=== PATIENT | female | born 1950 | race Caucasian/White ===

== ENCOUNTER → 2018-05-01 | Outpatient (CLI) | payer MEDICARE, BC ==
[~2018-05-01] MED LIST: CALCIUM600 M1; IOPAMIDOL 370 MG/ML 200 ML INFUS..BTL INJ ONE; SODIUM CHLORIDE 0.9% 250ML 250 ML ONE; SODIUM CHLORIDE 0.9% 50ML 50 ML ONE; Z ENJUVIA PO; Z.0.SPIRONOLACTONE50 PO; [UNRECOGNIZED DRUG - REMARK] PO
[2018-05-01 10:54] LABS: BLOOD UREA NITROGEN 17 mg/dL (7-26); BUN/CREATININE RATIO 18 (6-25); CREATININE, SERUM 0.92 mg/dL (0.57-1.11); EST GLOMERULAR FILTRATION RATE > 60 ML/MIN (60-)
--- NOTE | 2018-05-01 12:55 | Diagnostic Imaging Report ---
ADDENDUM #1 The following addendum is being made to comply with coding criteria, and does not substantially change the findings or recommendations of the original report All CT scans are performed using radiation dose reduction techniques. Technical factors are evaluated and adjusted to ensure appropriate moderation of exposure. Automated dose management technology is applied to adjust the radiation dose to minimize exposure while achieving a diagnostic-quality image. Signed by: Dr. William Stiles M.D. on 05/08/2018 12:03 PM ORIGINAL REPORT EXAM: CT Abdomen and Pelvis WITHOUT and WITH contrast INDICATION: Gross hematuria. Bacterial infection. History of breast cancer. COMPARISON: None. TECHNIQUE: Abdomen and pelvis were scanned utilizing a multidetector helical scanner from the lung base to the pubic symphysis before and after administration of IV contrast. Coronal and sagittal reformations were obtained. Hematuria protocol was performed. 3-D reformatted images were obtained of the kidneys, ureters and urinary bladder IV CONTRAST: 150 mL of Isovue-370 ORAL CONTRAST: Water RADIATION DOSE: Total DLP: 622.55 mGy*cm Estimated effective dose: (DLP x 0.015 x size factor) mSv COMPLICATIONS: None FINDINGS: LINES and TUBES: None. LOWER THORAX: Unremarkable HEPATOBILIARY: No focal hepatic lesions. No biliary ductal dilation. GALLBLADDER: No radio-opaque stones or sludge. No wall thickening. SPLEEN: No splenomegaly. PANCREAS: No focal masses or ductal dilatation. ADRENALS: No adrenal nodules KIDNEYS/URETERS: Kidneys enhance symmetrically. No hydronephrosis. No cystic or solid mass lesions. 8 mm stone in the upper pole of the left kidney. GI TRACT: No abnormal distention, wall thickening, or evidence of bowel obstruction. PELVIC ORGANS/BLADDER: Unremarkable. LYMPH NODES: No lymphadenopathy. VESSELS: Unremarkable. PERITONEUM / RETROPERITONEUM: No free air or fluid. BONES: Unremarkable. SOFT TISSUES: Unremarkable. Scattered phleboliths are seen in the pelvis. IMPRESSION: 1. 8 mm nonobstructing stone in the upper pole of the left kidney and the kidneys, ureter and urinary bladder are otherwise unremarkable. Signed by: Dr. William Stiles M.D. on 05/01/2018 12:51 PM
== END ==
LOC: CT 09:52
PROVIDERS: ATTEND Urology
DX: R31.0 Gross hematuria (principal)
CPT/HCPCS: 36415; 74178; 82565; 84520; J7050; Q9967

== ENCOUNTER → 2018-06-29 | Day surgery (SDC) | payer MEDICARE, BC ==
[2018-06-25 12:36] LABS: BASOPHILS % 0.4 % (0.0-1.0); EOSINOPHILS # (AUTO) 0.1 (0.0-0.4); EOSINOPHILS % 1.6 % (0.0-6.0); HEMATOCRIT 33.2 % (34.2-44.1); HEMOGLOBIN 11.1 g/dL (12.0-16.0); LYMPHOCYTES # (AUTO) 1.7 (1.0-3.2); LYMPHOCYTES % 34.2 % (18.0-39.1); MEAN CORPUSCULAR HEMOGLOBIN 31.8 pg (28-32); MEAN CORPUSCULAR HGB CONC 33.4 g/dL (31-35); MEAN CORPUSCULAR VOLUME 95.1 fL (81-99); MONOCYTES # (AUTO) 0.6 (0.2-0.8); MONOCYTES % 11.7 % (4.4-11.3); NEUTROPHILS # (AUTO) 2.5 (2.1-6.9); NEUTROPHILS % 51.7 % (38.7-80.0); PLATELET COUNT 186 x10e3/uL (140-360); RED BLOOD COUNT 3.49 x10e6/uL (3.6-5.1); RED CELL DISTRIBUTION WIDTH 12.4 % (11.7-14.4)
[2018-06-25 13:04] LABS: BLOOD UREA NITROGEN 19 mg/dL (7-26); BUN/CREATININE RATIO 22 (6-25); CALCIUM 10.3 mg/dL (8.4-10.2); CARBON DIOXIDE 27 mmol/L (22-29); CHLORIDE 100 mmol/L (98-107); CREATININE, SERUM 0.86 mg/dL (0.57-1.11); EST GLOMERULAR FILTRATION RATE > 60 ML/MIN (60-); GLUCOSE 96 mg/dL (74-118); SODIUM 135 mmol/L (136-145)
--- NOTE | 2018-06-25 13:26 | Diagnostic Imaging Report ---
EXAM: XR CHEST 2 VIEWS DATE: 06/25/2018 12:17 PM INDICATION: Preoperative. Kidney stone. COMPARISON: None FINDINGS: Lines and Tubes: None Heart and Mediastinum: No acute cardiomediastinal findings. Lungs and Pleura: No significant pleural effusion, pneumothorax, or focal consolidation. Bones and Soft Tissues: No acute findings. Surgical clips overlie right breast. IMPRESSION: 1. No acute cardiopulmonary findings. Signed by: Dr. Philippe vEans MD on 06/25/2018 1:23 PM
--- NOTE | 2018-06-26 08:53 | Diagnostic Imaging Report ---
EXAM: ABDOMEN-1VIEW (KUB) DATE: 06/25/2018 12:20 PM INDICATION: Kidney stone COMPARISON: 05/01/2018 CT, no report available FINDINGS: Bowel Gas Pattern: Non-obstructive. Moderate stool largely obscures kidneys, particularly on the left. Pneumoperitoneum: None. Suspicious Calcifications: CT demonstrated calcification left kidney not distinctly seen. Catheter occasions in the pelvis appear vascular. Other: None. IMPRESSION: CT demonstrated calcification left kidney either no longer present or obscured by stool. Signed by: Dr. Philippe Evans MD on 06/25/2018 1:24 PM
[~2018-06-29] MED LIST changes: +ANASTROZOLE1 MG PO; +BELLADONNA/OPIUM 60 MG SUPP PR ONE; -CALCIUM600 M1; +CALCIUM600 M1 PO; +CEFTRIAXONE SOD 1 GM VIAL ONE; +DEXAMETHASONE SOD PHOS INJ 4 MG/ML VIAL ONE; +FENTANYL CITRATE/PF 100MCG/2 ML INJ ONE; +FIBER TABS625 MG PO; +FISH OIL 1,0001 EAC2 PO; -IOPAMIDOL 370 MG/ML 200 ML INFUS..BTL INJ ONE; +IOPAMIDOL 610MG/1ML 300 MG/ML VIAL IV ONE; +LIDOCAINE HCL 2% LOCAL INJ 5 ML SDV VIAL INJ ONE; +MIDAZOLAM HCL 2 MG/2 ML VIAL ONE; +ONDANSETRON HCL INJ 2 MG/ML VIAL ONE; +PROPOFOL IV EMULSION 10 MG/ML 20 ML VIAL ONE; +SEVOFLURANE INHAL SOLN 250 ML PEN BTL ONE; -SODIUM CHLORIDE 0.9% 250ML 250 ML ONE; -SODIUM CHLORIDE 0.9% 50ML 50 ML ONE; +VITAMIN D35000 UNIT PO; +VITAMIN E400 UNIT PO
--- OUTSIDE RECORDS SUMMARY | 2018-06-29 09:20 | XMS REPORT ---
Author [facility] Address Unknown Phone Unavailable Care Team Providers Care Director Athletic Name Role Phone YANNI PAZ Unavailable Unavailable Payers Payer Name Policy Type Policy Number Effective Date Expiration Date Problems This patient has no known problems. Allergies, Adverse Reactions, Alerts Allergy Name Allergy Type Status Severity Reaction(s) Onset Date Inactive Date Treating Clinician Comments No Known Allergies DA Active U 2017-10-23 00:00:00 Medications This patient has no known medications. Results Test Description Test Time Test Comments Text Results Atomic Results Result Comments ABDOMEN-1VIEW (KUB) 2018-06-25 13:23:00 [place] [address] Patient Name: JAISON GRAHAM MR #: [id number] : 1950 Age/Sex: 67/F Req #: [id number] Adm Physician: Ordered by: YANNI PAZ MD Report #: [id number] Location: OR Room/Bed: Procedure: [id number] DX/ABDOMEN-1VIEW (KUB) Exam Date: 06/25/18 Exam Time: 1330 REPORT STATUS: Signed EXAM: ABDOMEN-1VIEW (KUB) DATE: 06/25/2018 12:20 PM INDICATION: Kidney stone COMPARISON: 05/01/2018 CT, no report available FINDINGS: Bowel Gas Pattern: Non-obstructive. Moderate stool largely obscures kidneys, particularly on the left. Pneumoperitoneum: None. Suspicious Calcifications: CT demonstrated calcification left kidney not distinctly seen. Catheter occasions in the pelvis appear vascular. Other: None. IMPRESSION: CT demonstrated calcification left kidney either no longer present or obscured by stool. Signed by: Dr. Philippe Evans MD on 06/25/2018 1:24 PM Dictated By: PHILIPPE EVANS MD E lectronically Signed By: PHILIPPE EVANS MD on 06/25/18 1324 Transcribed By: BRYCE on 06/25/18 1324 COPY TO: YANNI PAZ MD CHEST 2 VIEWS 2018-06-25 13:22:00 [place] [address] Patient Name: JIASON GRAHAM MR #: [id number] : 1950 Age/Sex: 67/F Req #: [id number] Adm Physician: Ordered by: YANNI PAZ MD Report #: [id number] Location: OR Room/Bed: Procedure: [id number] DX/CHEST 2 VIEWS Exam Date: 06/25/18 Exam Time: 1308 REPORT STATUS: Signed EXAM: XR CHEST 2 VIEWS DATE: 06/25/2018 12:17 PM INDICATION: Preoperative. Kidney stone. COMPARISON: None FINDINGS: Lines and Tubes: None Heart and Mediastinum: No acute cardiomediastinal findings. Lungs and Pleura: No significant pleural effusion, pneumothorax, or focal consolidation. Bones and Soft Tissues: No acute findings. Surgical clips overlie right breast. IMPRESSION: 1. No acute cardiopulmonary findings. Signed by: Dr. Philippe Evans MD on 06/25/2018 1:23 PM Dictated By: PHILIPPE EVANS MD 1323 Transcribed By: BRYCE on 06/25/18 1323 COPY TO: YANNI PAZ MD CT ABDOMEN/PELVIS WOW 2018-05-01 12:43:00 [place] [address] Patient Name: JAISON GRAHAM MR #: [id number] : 1950 Age/Sex: 67/F Req #: [id number] Adm Physician: Ordered by: YANNI PAZ MD Report #: [id number] Location: CT Room/Bed: Procedure: [id number] CT/CT ABDOMEN/PELVIS WOW Exam Date: 05/01/18 Exam Time: 1130 REPORT STATUS: Signed ADDENDUM #1 The following addendum is being made to comply with coding criteria, and does not substantially change the findings or recommendations of the original report All CT scans are performed using radiation dose reduction techniques. Technical factors are evaluated and adjusted to ensure appropriate moderation of exposure. Automated dose management technology is applied to adjust the radiation dose to minimize exposure while achieving a diagnostic-quality image. Signed by: Dr. William Stiles M.D. on 05/08/2018 12:03 PM ORIGINAL REPORT EXAM: CT Abdomen and Pelvis WITHOUT and WITH contrast INDICATION: Gross hematuria. Bacterial infection. History of breast cancer. COMPARISON: None. TECHNIQUE: Abdomen and pelvis were scanned utilizing a multidetector helical scanner from the lung base to the pubic symphysis before and after administration of IV contrast. Coronal and sagittal reformations were obtained. Hematuria protocol was performed. 3-D reformatted images were obtained of the kidneys, ureters and urinary bladder IV CONTRAST: 150 mL of Isovue-370 ORAL CONTRAST: Water RADIATION DOSE: Total DLP: 622.55 mGy*cm Estimated effective dose: (DLP x 0.015 x size factor) mSv COMPLICATIONS: None FINDINGS: LINES and TUBES: None. LOWER THORAX: Unremarkable HEPATOBILIARY: No focal hepatic lesions. No biliary ductal dilation. GALLBLADDER: No radio-opaque stones or sludge. No wall thickening. SPLEEN: No splenomegaly. PANCREAS: No focal masses or ductal dilatation. ADRENALS: No adrenal nodules KIDNEYS/URETERS: Kidneys enhance symmetrically. No hydronephrosis. No cystic or solid mass lesions. 8 mm stone in the upper pole of the left kidney. GI TRACT: No abnormal distention, wall thickening, or evidence of bowel obstruction. PELVIC ORGANS/BLADDER: Unremarkable. LYMPH NODES: No lymphadenopathy. VESSELS: Unremarkable. PERITONEUM / RETROPERITONEUM: No free air or fluid. BONES: Unremarkable. SOFT TISSUES: Unremarkable. Scattered phleboliths are seen in the pelvis. IMPRESSION: 1. 8 mm nonobstructing stone in the upper pole of the left kidney and the kidneys, ureter and urinary bladder are otherwise unremarkable. Signed by: Dr. William Stiles M.D. on 05/01/2018 12:51 PM Dictated By: WILLIAM STILES MD, MD 1203 Transcribed By: BRYCE on 05/01/18 1251 COPY TO: YANNI PAZ MD
--- NOTE | 2018-06-29 10:39 | Diagnostic Imaging Report ---
PROCEDURE:X-RAY ABDOMEN - KUB COMPARISON:06/25/2018. INDICATIONS:PREOPERATIVE CHEST XRAY FOR KIDNEY STONE SURGERY FINDINGS: Bowel gas pattern shows no dilated, air-filled loops of bowel. Cluster of left upper pole renal calculi measuring 8 mm in aggregate dimension, as seen on comparison CT. No additional calcifications project over the renal shadows or expected ureteral courses. Multiple pelvic phleboliths. Regional skeletal structures are intact. CONCLUSION: left upper pole renal calculi as seen on prior CT. Dictated by: Cesar Alvarado M.D. on 06/29/2018 at 10:50 Electronically approved by: Cesar Alvarado M.D. on 06/29/2018 at 10:50
[2018-06-29 15:15] VITALS: BP 145/86
--- NOTE | 2018-07-01 23:57 | Operative Report ---
DATE OF PROCEDURE: June 29, 2018 PREOPERATIVE DIAGNOSES 1. Left nephrolithiasis. 2. History of hematuria. 3. History of urinary tract infections. 4. Mixed-type urinary incontinence. POSTOPERATIVE DIAGNOSES 1. Left nephrolithiasis. 2. History of hematuria. 3. History of urinary tract infections. 4. Mixed-type urinary incontinence. 5. Mild cystocele. 6. Mild rectocele. 7. Atrophic (senile) vaginitis. OPERATIONS PERFORMED 1. Staged left-sided extracorporeal shockwave lithotripsy (separate procedure performed for the nephrolithiasis). 2. Cystourethroscopy with bilateral ureteral catheterization and retrograde ureteropyelography (separate procedure performed for the hematuria and urinary tract infections). 3. Interpretation of retrograde ureteropyelography. 4. Supervision of fluoroscopy. No radiologist present. ANESTHESIA: General. COMPLICATIONS: None. CLINICAL SUMMARY: Jessee Vallecillo is a 67-year-old woman with the above preoperative diagnoses. She was brought for the above procedures. She is aware of the risks of bleeding, infection, injury to adjacent structures, need for additional procedures, and elected to proceed. OPERATIVE PROCEDURE IN DETAIL: Informed consent was verified. Jessee Vallecillo was properly identified, taken to operating room, placed on the lithotripsy table in supine position. Anesthesia was uneventfully begun. The patient's left nephrolithiasis was localized with biplanar fluoroscopy. Total of 3000 shocks were delivered with excellent fragmentation. The patient was carefully and gently re-positioned in dorsal lithotomy position with all pressure points well padded. Her genitalia were prepared and draped in usual sterile fashion. The 22.5-Bhutanese cystoscope sheath with the obturator in place was atraumatically inserted in patient's urethra and the bladder was drained. Panendoscopy of the urinary bladder revealed no suspicious mucosal lesions, no tumors, no stones. An 8-Bhutanese catheter was used to cannulate each ureter and retrograde ureteropyelograms performed. Interpretation of retrograde ureteropyelography: Contrast was instilled in retrograde fashion bilaterally. On the left side. There were filling defects in the upper pole arie corresponding to the fragmented stones and blood clots. The right side was unremarkable. There were no tumors, there were no stones, there were no diverticula. Unobstructed drainage was observed bilaterally fluoroscopically. Patient's bladder was drained. The cystoscope was withdrawn. Pelvic examination under anesthesia revealed a mild cystocele, mild rectocele. There was atrophic (senile) vaginitis. No abnormal palpable pelvic masses could be appreciated. The patient was then uneventfully reversed from anesthesia and taken to recovery room in stable condition. There were no complications to the procedure. She tolerated the procedure well. Explicit postop instructions were given. Will follow the patient up in the office. Job#: [id number] CQ cc:KEATON BUCKLEY MD
== END | disposition home or self-care (01) ==
LOC: OR 09:18
PROVIDERS: ATTEND Urology
DX: N20.0 Calculus of kidney (principal); Z87.440 Personal history of urinary (tract) infections; N39.46 Mixed incontinence; N81.10 Cystocele, unspecified; N81.6 Rectocele; N95.2 Postmenopausal atrophic vaginitis; I45.10 Unspecified right bundle-branch block; Z01.810 Encounter for preprocedural cardiovascular examination; Z01.812 Encounter for preprocedural laboratory examination; Z01.818 Encounter for other preprocedural examination; Z79.82 Long term (current) use of aspirin
CPT/HCPCS: 36415 ×2; 50590; 71046; 74018 ×2; 80048; 82948; 83970; 84550; 85025; 93005; C1758; J0696; J1100; J2001; J2250; J2405; J2704; Q9967

== ENCOUNTER → 2018-11-01 | Outpatient (CLI) | payer MEDICARE, BC ==
[~2018-11-01] MED LIST changes: -BELLADONNA/OPIUM 60 MG SUPP PR ONE; -CEFTRIAXONE SOD 1 GM VIAL ONE; -DEXAMETHASONE SOD PHOS INJ 4 MG/ML VIAL ONE; -FENTANYL CITRATE/PF 100MCG/2 ML INJ ONE; -IOPAMIDOL 610MG/1ML 300 MG/ML VIAL IV ONE; -LIDOCAINE HCL 2% LOCAL INJ 5 ML SDV VIAL INJ ONE; -MIDAZOLAM HCL 2 MG/2 ML VIAL ONE; -ONDANSETRON HCL INJ 2 MG/ML VIAL ONE; -PROPOFOL IV EMULSION 10 MG/ML 20 ML VIAL ONE; -SEVOFLURANE INHAL SOLN 250 ML PEN BTL ONE
--- NOTE | 2018-11-01 09:47 | Diagnostic Imaging Report ---
Abdomen, one view. History: Renal stone. Comparison: CT scan of the kidneys dated 05/01/2018 Findings: Small upper pole left renal stone present that appears changed in size compared to the prior study and now measuring 3.9 mm. Multiple pelvic calcifications appear compatible with phleboliths The intestinal gas pattern is nonobstructive. There no masses. The osseous structures are intact. IMPRESSION: Small left upper pole renal stone. Signed by: Dr. Gregory Mccullough DO on 11/01/2018 9:44 AM
== END ==
LOC: RAD 08:54
PROVIDERS: ATTEND Urology
DX: N20.0 Calculus of kidney (principal)
CPT/HCPCS: 74018

== ENCOUNTER → 2019-01-24 | Outpatient (CLI) | payer MEDICARE, BC ==
--- NOTE | 2019-01-24 13:56 | Diagnostic Imaging Report ---
Abdomen, 2 views. History: Renal stones. Comparison: 11/01/2018 Findings: Previously identified left renal stone not readily apparent on this study. There is fecal material within the colon that obscures renal detail. The intestinal gas pattern is nonobstructive. There is no free air. There no masses. Multiple pelvic phleboliths again noted. The osseous structures are intact. IMPRESSION: No acute abdominal abnormality. Signed by: Dr. Gregory Mccullough DO on 01/24/2019 1:53 PM
== END ==
LOC: RAD 11:38
PROVIDERS: ATTEND Urology
DX: N20.0 Calculus of kidney (principal)
CPT/HCPCS: 74018

== ENCOUNTER → 2019-04-26 | Day surgery (SDC) | payer MEDICARE, BC ==
[2019-04-22 09:05] LABS: BASOPHILS % 0.5 % (0.0-1.0); EOSINOPHILS # (AUTO) 0.1 (0.0-0.4); EOSINOPHILS % 2.2 % (0.0-6.0); HEMATOCRIT 32.8 % (34.2-44.1); LYMPHOCYTES # (AUTO) 0.9 (1.0-3.2); LYMPHOCYTES % 23.9 % (18.0-39.1); MEAN CORPUSCULAR HEMOGLOBIN 31.3 pg (28-32); MEAN CORPUSCULAR HGB CONC 33.5 g/dL (31-35); MEAN CORPUSCULAR VOLUME 93.4 fL (81-99); MONOCYTES # (AUTO) 0.5 (0.2-0.8); NEUTROPHILS # (AUTO) 2.2 (2.1-6.9); NEUTROPHILS % 59.1 % (38.7-80.0); PLATELET COUNT 220 x10e3/uL (140-360); RED BLOOD COUNT 3.51 x10e6/uL (3.6-5.1); RED CELL DISTRIBUTION WIDTH 12.2 % (11.7-14.4)
[2019-04-22 09:27] LABS: BLOOD UREA NITROGEN 19 mg/dL (7-26); BUN/CREATININE RATIO 22 (6-25); CALCIUM 10.1 mg/dL (8.4-10.2); CARBON DIOXIDE 27 mmol/L (22-29); CHLORIDE 102 mmol/L (98-107); CREATININE, SERUM 0.87 mg/dL (0.57-1.11); EST GLOMERULAR FILTRATION RATE > 60 ML/MIN (60-); GLUCOSE 96 mg/dL (74-118); SODIUM 136 mmol/L (136-145)
--- NOTE | 2019-04-22 09:53 | Diagnostic Imaging Report ---
EXAMINATION: CHEST 2 VIEWS INDICATION: Pre-operative COMPARISON: Chest radiograph of 06/25/2018 FINDINGS: LINES/TUBES:None LUNGS:The lungs are well-inflated. No focal consolidation or pulmonary edema. PLEURA:No pleural effusion or pneumothorax. MEDIASTINUM:The cardiomediastinal silhouette appears normal in size and shape. Atherosclerotic calcifications of the thoracic aorta. BONES/SOFT TISSUES:No acute osseous injury. Surgical clips in the right breast. ABDOMEN:No free air under the diaphragm. IMPRESSION: No focal pneumonia or pulmonary edema. Signed by: Marcia Marinelli MD on 04/22/2019 9:50 AM
--- NOTE | 2019-04-22 10:07 | Diagnostic Imaging Report ---
Exam: KUB - 2 views Indication: Preoperative Comparison: KUB of 01/24/2019 Findings: No radiographically apparent renal calculi. Nonobstructive bowel gas pattern. The osseous structures appear unremarkable. Phleboliths in the pelvis. Impression: No radiographically apparent renal calculi. Signed by: Marcia Marinelli MD on 04/22/2019 10:04 AM
[~2019-04-26] MED LIST changes: +CEFTRIAXONE SOD 1 GM/NS 50 ML 50 ML IV ONE; +CITRACAL + D M1 EACH PO; +DEXAMETHASONE SOD PHOS INJ 4 MG/ML VIAL ONE; +HYDROCHLOROTHIA25 MG PO; +LIDOCAINE HCL 2% LOCAL INJ 5 ML SDV VIAL INJ ONE; +ONDANSETRON HCL INJ 2MG/ML 2ML 2 MG/ML VIAL ONE; +PROPOFOL IV EMULSION 10 MG/ML 20 ML VIAL ONE; +SEVOFLURANE INHAL SOLN 250 ML PEN BTL ONE
--- OUTSIDE RECORDS SUMMARY | 2019-04-26 05:20 | XMS REPORT | Clinical Summary ---
Author Author [facility] Organization [facility] Address Unknown Phone Unavailable Care Team Providers Care Polarity Tester Name Role Phone Lina Newsome MD PCP Allergies No Known Allergies Medications End Date Status Medication Sig Dispensed Refills Start Date Active anastrozole (ARIMIDEX) 1 Take 1 mg by 0 mg chemo tablet mouth daily. Active spironolactone Take 50 mg by 0 (ALDACTONE) 50 MG tablet mouth daily. Active omega 1-mww-cdz-fish oil Take by 0 (FISH OIL) 1,000 mg (120 mouth. mg-180 mg) capsule Active vitamin E 400 UNIT Take 400 0 capsule Units by mouth daily. Active calcium citrate-vitamin Take 1 tablet 0 D3 (CITRACAL+D) 315-200 by mouth 2 mg-unit per tablet (two) times a day. Active hydroCHLOROthiazide Take 12.5 mg 0 (HYDRODIURIL) 12.5 MG by mouth tablet daily. 02/01/2019 Discontinued (Duplicate order) calcium carbonate-vitamin Take 1 tablet 0 D3 500 mg-200 unit per by mouth 2 tablet (two) times a day with meals. 02/01/2019 Discontinued (Stop Taking at Discharge) aspirin (ECOTRIN) 325 MG Take 325 mg 0 enteric coated tablet by mouth daily. Active Problems No known active problems Encounters Care Team Description Date Type Specialty Merrick Jacob MD [place], [place], CRNA 02/01/2019 Anesthesia General Surgery Event Hansa Gutierrez MD FAT GRAFTING TO RIGHT BREAST (DONOR) LIPOSUCTION FROM ABDOMEN AND FLANKS 02/01/2019 Surgery General Surgery Hansa Gutierrez MD Preop testing 02/01/2019 Hospital General Surgery Encounter Hansa Gutierrez MD 01/21/2019 Hospital Radiology Encounter Hansa Gutierrez MD Preop testing (Primary Dx) 01/21/2019 Pre-Admit Pre-Admission Testing Testing Appointment after 04/25/2018 Family History Medical History Relation Name Comments Cancer Brother Diabetes Father No Known Problems Mother Cancer Sister Relation Name Status Comments Brother Father Mother Sister Social History Date Tobacco Use Types Packs/Day Years Used Never Smoker Smokeless Tobacco: Never Used Drinks/Week oz/Week Comments Alcohol Use Never Alcohol Habits Answer Date Recorded How often do you have a drink containing alcohol? Never 01/21/2019 How many drinks containing alcohol do you have on Not asked a typical day when you are drinking? How often do you have six or more drinks on one Not asked occasion? Sex Assigned at Date Recorded Not on file Industry Job Start Date Occupation Not on file Not on file Not on file Travel End Travel History Travel Start No recent travel history available. Last Filed Vital Signs Reading Time Taken Comments Vital Sign 148/65 02/01/2019 7:35 PM CDT Blood Pressure 79 02/01/2019 7:35 PM CDT Pulse 37.1 C (98.7 F) 02/01/2019 7:02 PM CDT Temperature 16 02/01/2019 7:35 PM CDT Respiratory Rate 98% 02/01/2019 7:35 PM CDT Oxygen Saturation - - Inhaled Oxygen Concentration 55.1 kg (121 lb 6.4 oz) 02/01/2019 12:29 PM CDT Weight 149.9 cm (4' 11") 02/01/2019 12:29 PM CDT Height 24.52 02/01/2019 12:29 PM CDT Body Mass Index Plan of Treatment Health Maintenance Due Date Last Done Comments BREAST CANCER SCREENING 09/27/2001 COLONOSCOPY SCREENING 09/27/2001 SHINGLES VACCINES (#1) 09/27/2001 65+ PNEUMOCOCCAL VACCINE 09/27/2016 (1 of 2 - PCV13) INFLUENZA VACCINE 02/28/2019 Procedures Comments Procedure Name Priority Date/Time Associated Diagnosis SURGICAL PATHOLOGY Routine 02/01/2019 REQUEST 2:45 PM CDT MD AN ELECTIVE Routine 02/01/2019 ENDOTRACHEAL AIRWAY 1:47 PM CDT Procedure Note - Janay Traylor - 02/01/2019 1:47 PM CDT Airway Performed by: Janay Traylor Authorized by: Merrick Jacob MD Location: OR Urgency: Elective Anesthesio logist: Merrick Jacob MD Resident/C RNA/AA: Janay Traylor Performed by: resident/C RNA/AA Preoxygena sarath with 100% O2: Yes Mask Ventilatio n: Easy mask Final Airway Type: Endotrache al airway Final Endotrache al Airway: ETT Technique Used: Direct laryngosco py Devices/Me thods Used in Placement: Intubatin g stylet Blade Type: Kathryn Laryngosco pe Blade/Vide olaryngosc ope Blade Size: 3 ETT Size (mm): 7.0 Measured from: Teeth ETT to Teeth (cm): 20 Placement Verified by: CO2 detection and direct visualizat ion Laryngosco pic view: Grade IIb - view of arytenoids or posterior of glottis only Rapid Sequence Induction (RSI): No Modified RSI: No Number of Attempts at Approach: 1 MASTOPEXY 02/01/2019 HX OF RIGHT BREAST CANCER 1:22 PM CDT WITH BREAST ASYMMETRY - C50.11 & N65.0 LIPOSUCTION 02/01/2019 HX OF RIGHT BREAST CANCER 1:22 PM CDT WITH BREAST ASYMMETRY - C50.11 & N65.0 XR CHEST 2 VW Routine 01/21/2019 Preop testing 2:45 PM CDT ECG 12-LEAD Routine 01/21/2019 Preop testing 2:22 PM CDT ESTIMATED GFR Routine 01/21/2019 2:16 PM CDT COMPREHENSIVE METABOLIC Routine 01/21/2019 Preop testing PANEL 2:16 PM CDT HC COMPLETE BLD COUNT Routine 01/21/2019 Preop testing W/AUTO DIFF 2:16 PM CDT after 04/25/2018 Results * Surgical pathology request (02/01/2019 2:45 PM CDT) [facility] DEPARTMENT OF PATHOLOGY AND GENOMIC MEDICINE Surgical See link below for PDF Lab [facility] pathology Report DEPARTMENT OF report PATHOLOGY AND GENOMIC MEDICINE Result status This is Final Report for [facility] [id number] DEPARTMENT OF PATHOLOGY AND GENOMIC MEDICINE Specimen Performing Organization Address City/State/Zipcode Phone Number [facility] [place] [address] [place] [address] PATHOLOGY AND GENOMIC MEDICINE * XR Chest 2 Vw (01/21/2019 2:45 PM CDT) Specimen Narrative Performed At EXAMINATION:XR CHEST 2 VW RADIANT CLINICAL HISTORY: Z01.818 Encounter for other preprocedural examination, preop COMPARISON:None IMPRESSION: No active disease in the chest. Lungs are clear. Heart size and pulmonary vasculature are normal. There is aortic calcification.No effusion or pneumothorax noted. Visualized osseous structures are intact. Procedure Note Interface, Radiology Results Incoming - 01/21/2019 3:37 PM CDT EXAMINATION: XR CHEST 2 VW CLINICAL HISTORY: Z01.818 Encounter for other preprocedural examination, preop COMPARISON: None IMPRESSION: No active disease in the chest. Lungs are clear. Heart size and pulmonary vasculature are normal. There is aortic calcification. No effusion or pneumothorax noted. Visualized osseous structures are intact. Performing Organization Address [facility]/Zipcode Phone Number [facility] [address] [place] [address] * ECG 12 lead (01/21/2019 2:22 PM CDT) Pathologist [facility] Ventricular 86 [facility] rate Atrial rate 86 [facility] MD interval 150 [facility] QRSD interval 132 [facility] QT interval 378 [facility] QTC interval 452 [facility] P axis 1 36 [facility] QRS axis 1 -22 [facility] T wave axis 15 [facility] EKG impression Normal sinus rhythm-Right [facility] bundle branch block-Abnormal ECG-No previous ECGs available- Specimen Narrative Performed At Performing Organization Address City/[facility]/Zipcode Phone Number [facility] MUSE [address] [place] [address] * Estimated GFR (01/21/2019 2:16 PM CDT) Pathologist [facility] Estimated GFR 66 mL/min/1.73 m2 [place] Comment: DRUZE CLEAR [facility] rpretation G1 >=90 Normal or high G2 60-89Mildly decreased [id number] Mildly to moderately decreased [id number] Moderately to severely decreased G4 15-29Severely decreased G5 <15Kidney failure The eGFR was calculated using the Chronic Kidney Disease Epidemiology Collaboration (CKD-EPI) equation. Interpretation is based on recommendations of the National Kidney Foundation-Kidney Disease Outcomes Quality Initiative (NKF-KDOQI) published in 2014. Specimen Plasma specimen Performing Organization Address City/[facility] Phone Number [facility] [place] [id number] [place] [address] [place] [id number] PATHOLOGY AND GENOMIC MEDICINE [address] * CBC with platelet and differential (01/21/2019 2:16 PM CDT) WBC 4.70 4.50 - 11.00 k/uL [facility] RBC 3.67 (L) 4.20 - 5.50 m/uL [facility] HGB 11.6 (L) 12.0 - 16.0 g/dL [facility] HCT 34.3 (L) 37.0 - 47.0 % [facility] MCV 93.5 82.0 - 100.0 fL [facility] MCH 31.6 27.0 - 34.0 pg [facility] MCHC 33.8 31.0 - 37.0 g/dL [facility] RDW - SD 42.0 37.0 - 55.0 fL [facility] MPV 9.8 8.8 - 13.2 fL [facility] Platelet count 218 150 - 400 k/uL [facility] Nucleated RBC 0.00 /100 WBC [facility] Neutrophils 61.4 39.0 - 69.0 % [facility] Lymphocytes 24.9 (L) 25.0 - 45.0 % [facility] Monocytes 12.1 (H) 0.0 - 10.0 % [facility] Eosinophils 0.6 0.0 - 5.0 % [facility] Basophils 0.6 0.0 - 1.0 % [facility] Specimen Blood Performing Organization Address City/[facility] Phone Number [facility] DEPARTMENT OF [address] [place] [address] [place] [phone] PATHOLOGY AND GENOMIC MEDICINE [address] * Comprehensive metabolic panel (01/21/2019 2:16 PM CDT) Sodium 134 (L) 135 - 148 mEq/L [facility] Potassium 3.7 3.5 - 5.0 mEq/L [facility] Chloride 94 (L) 98 - 112 mEq/L [facility] CO2 28 24 - 31 mEq/L [facility] Anion gap 12@ANIO 7 - 15 mEq/L [facility] BUN 18 8 - 23 mg/dL [facility] Creatinine 0.90 0.50 - 0.90 mg/dL [facility] Glucose 111 (H) 65 - 99 mg/dL [facility] Calcium 10.0 8.8 - 10.2 mg/dL [facility] Protein 7.8 6.3 - 8.3 g/dL [place] Comment: [facility] 4.6-7.0 g/dL 1 week 4.4-7.6 g/dL 7 months-1year 5.1-7.3 g/dL 1-2 years5.6-7 .5 g/dL >3 years6.0-8 .0 g/dL 18-150 6.3-8.3 g/dL Albumin 4.8 3.5 - 5.0 g/dL [facility] A/G ratio 1.6 0.7 - 3.8 [facility] Alkaline 79 35 - 104 U/L [place] phosphatase [facility] AST 18 10 - 35 U/L [facility] ALT 16 5 - 50 U/L [facility] Total bilirubin 0.2 0.0 - 1.2 mg/dL [facility] Specimen Plasma specimen Performing Organization Address City/State/Zipcode [place] [address] [place] [address] PATHOLOGY AND GENOMIC MEDICINE [facility] [address] after 04/25/2018 Insurance Type Payer Benefit Subscriber ID Effective Phone Address Plan / Dates Group PPO BCBS BCBS xxxxxxxxxxxx [id number] CHOICE resent PPO/F[employer] [employer] EMPL PPO Medicare MEDICARE MEDICARE xxxxxxxxxxx 2016-P [place], PART A AND [place] Advance Directives For more information, please contact: [phone] Patient Commercial Real Estate Assistant Explanation Type Date Recorded Advance Directives, Living Will and Medical Power of Inspector [place]
[2019-04-26 08:30] VITALS: BP 155/75
--- NOTE | 2019-04-26 14:36 | Operative Report ---
DATE OF PROCEDURE: 04/26/2019 SURGEON: Freddy Jarvis MD PREOPERATIVE DIAGNOSIS: Left nephrolithiasis. POSTOPERATIVE DIAGNOSIS: Left nephrolithiasis. OPERATIONS PERFORMED: 1. Staged left-sided extracorporeal shockwave lithotripsy. 2. Supervision of fluoroscopy, no radiologist present. ANESTHESIA: General. COMPLICATIONS: None. CLINICAL SUMMARY: Jessee Vallecillo is a 68-year-old woman with left nephrolithiasis. She underwent ESWL and her stone went from 8 mm to 4 mm. The patient is brought to the operating today for lithotripsy. She is aware of the risks of bleeding, infection, injury to adjacent structures, and need for additional procedures and elected to proceed. OPERATIVE PROCEDURE IN DETAIL: Informed consent was verified. Jessee Vallecillo was properly identified, taken to the operating room, and placed on the lithotripsy table in the supine position. Anesthesia was uneventfully begun. The patient's 4 mm stone was localized with biplanar fluoroscopy. A total of 3000 shocks were delivered with fragmentation noted. The patient was then uneventfully reversed from anesthesia and taken to the recovery room in stable condition. There were no complications to the procedure. She tolerated the procedure well. Explicit postop instructions were given. We will follow the patient up in the office. Freddy Jarvis MD [place]/[facility] /[id number]
== END | disposition home or self-care (01) ==
LOC: OR 05:00
PROVIDERS: ATTEND Urology
DX: N20.0 Calculus of kidney (principal); Z01.810 Encounter for preprocedural cardiovascular examination; Z01.812 Encounter for preprocedural laboratory examination; Z01.818 Encounter for other preprocedural examination; Z79.82 Long term (current) use of aspirin
CPT/HCPCS: 36415; 50590; 71046; 74018; 80048; 83970; 84550; 85025; 93005; J0696; J1100; J2001; J2405; J2704

== ENCOUNTER → 2019-09-12 | Outpatient (CLI) | payer MEDICARE, BC ==
[~2019-09-12] MED LIST changes: -CEFTRIAXONE SOD 1 GM/NS 50 ML 50 ML IV ONE; -DEXAMETHASONE SOD PHOS INJ 4 MG/ML VIAL ONE; -LIDOCAINE HCL 2% LOCAL INJ 5 ML SDV VIAL INJ ONE; -ONDANSETRON HCL INJ 2MG/ML 2ML 2 MG/ML VIAL ONE; -PROPOFOL IV EMULSION 10 MG/ML 20 ML VIAL ONE; -SEVOFLURANE INHAL SOLN 250 ML PEN BTL ONE
--- NOTE | 2019-09-12 13:17 | Diagnostic Imaging Report ---
EXAM: ABDOMEN-1VIEW (KUB) DATE: 09/12/2019 12:48 PM INDICATION: History of renal calculus. COMPARISON: 04/22/2019 FINDINGS: Bowel gas pattern is nonobstructive. No radiographically evident renal calculi are appreciated. Stable appearing phleboliths noted within the pelvis. No other abnormal intra-abdominal calcification is appreciated. No acute osseous abnormality identified. IMPRESSION: No radiographically evident renal calculi identified. Signed by: Dr. Nabil Rehman MD on 09/12/2019 1:14 PM
== END ==
LOC: RAD 12:39
PROVIDERS: ATTEND Urology
DX: N20.0 Calculus of kidney (principal)
CPT/HCPCS: 74018

== ENCOUNTER → 2020-05-14 | Outpatient (CLI) | payer MEDICARE, BC ==
--- NOTE | 2020-05-14 11:46 | Diagnostic Imaging Report ---
Abdomen, one view INDICATION: ^[id number] ^[id number] ^CALCULUS OF KIDNEY Comparison: None available. Discussion: No radiographically apparent renal calculi are identified projecting over the renal shadows or expected course of the ureters. Phleboliths are identified in the pelvis. Large amount of stool is identified throughout the proximal colon with a mild amount of stool throughout the descending colon and sigmoid colon/rectum. No dilated loops of small bowel are identified. No acute osseous abnormality. IMPRESSION: No radiographically apparent renal calculi. Moderate colonic stool retention, correlate for constipation. Signed by: Ronny Sweeney MD on 05/14/2020 11:43 AM
== END ==
LOC: RAD 10:38
PROVIDERS: ATTEND Urology
DX: N20.0 Calculus of kidney (principal)
CPT/HCPCS: 74018

== ENCOUNTER → 2020-10-27 | Outpatient (CLI) | payer MEDICARE, BC | LOC: RAD 10:48 | PROVIDERS: ATTEND Urology | DX: N20.0 Calculus of kidney (principal) | CPT/HCPCS: 74018 ==

== ENCOUNTER → 2021-04-13 | Outpatient (CLI) | payer MEDICARE, BC ==
[~2021-04-13] MED LIST changes: +IOPAMIDOL 370 MG/ML 200 ML INFUS..BTL INJ ONE; +SODIUM CHLORIDE 0.9% 250ML 250 ML ONE
== END ==
LOC: CT 13:22
PROVIDERS: ATTEND Urology
DX: R31.0 Gross hematuria (principal)
CPT/HCPCS: 74178; J7050; Q9967

== ENCOUNTER → 2021-06-04 | Day surgery (SDC) | payer MEDICARE, BC ==
[2021-06-02 08:10] LABS: BASOPHILS % 0.6 % (0.0-1.0); EOSINOPHILS # (AUTO) 0.3 (0.0-0.4); EOSINOPHILS % 5.2 % (0.0-6.0); HEMATOCRIT 32.1 % (34.2-44.1); HEMOGLOBIN 10.4 g/dL (12.0-16.0); LYMPHOCYTES # (AUTO) 1.3 (1.0-3.2); LYMPHOCYTES % 23.9 % (18.0-39.1); MEAN CORPUSCULAR HGB CONC 32.4 g/dL (31-35); MEAN CORPUSCULAR VOLUME 95.8 fL (81-99); MONOCYTES # (AUTO) 0.6 (0.2-0.8); MONOCYTES % 11.1 % (4.4-11.3); NEUTROPHILS # (AUTO) 3.1 (2.1-6.9); NEUTROPHILS % 58.8 % (38.7-80.0); PLATELET COUNT 235 x10e3/uL (140-360); RED BLOOD COUNT 3.35 x10e6/uL (3.6-5.1)
[2021-06-02 08:37] LABS: ALBUMIN 4.1 g/dL (3.5-5.0); ALBUMIN/GLOBULIN RATIO 1.1 (0.8-2.0); ANION GAP 16.1 mmol/L (8-16); CALCIUM 9.4 mg/dL (8.4-10.2); CREATININE, SERUM 1.05 mg/dL (0.57-1.11); POTASSIUM 4.1 mmol/L (3.5-5.1)
[~2021-06-04] MED LIST changes: +AMOX-CLAV PO; +BELLADONNA/OPIUM 30 MG SUPP RC ONE; +EPHEDRINE SULFATE INJ 50 MG/ML VIAL ONE; +FENTANYL CITRATE/PF 100MCG/2 ML INJ ONE; +GENTAMICIN 80MG/NS 100 ML 200 ML IV ONE; +IOPAMIDOL 300MG/ML 50ML INFUS..BTL IV ONE; -IOPAMIDOL 370 MG/ML 200 ML INFUS..BTL INJ ONE; +LIDOCAINE HCL 2% LOCAL INJ 5 ML SDV VIAL INJ ONE; +MIDAZOLAM HCL 2 MG/2 ML VIAL ONE; +ONDANSETRON HCL INJ 2MG/ML 2ML 2 MG/ML VIAL ONE; +PIPERACILLIN/TAZOBACTAM 3.375 GM VIAL ONE; +POVIDONE IODINE 0.05% 0.05 % ML PO ONE; +PROPOFOL IV EMULSION 10 MG/ML 20 ML VIAL ONE; +SEVOFLURANE INHAL SOLN 250 ML PEN BTL ONE; -SODIUM CHLORIDE 0.9% 250ML 250 ML ONE; +SODIUM CHLORIDE 0.9% 50ML 50 ML ONE
[2021-06-04 13:20] VITALS: BP 149/72
== END | disposition home or self-care (01) ==
LOC: OR 08:26
PROVIDERS: ATTEND Urology
DX: N20.0 Calculus of kidney (principal); N39.0 Urinary tract infection, site not specified; N81.10 Cystocele, unspecified; N81.6 Rectocele; N95.2 Postmenopausal atrophic vaginitis; N36.41 Hypermobility of urethra; C50.911 Malignant neoplasm of unspecified site of right female breast; R73.03 Prediabetes; K21.9 Gastro-esophageal reflux disease without esophagitis; I45.10 Unspecified right bundle-branch block; Z91.040 Latex allergy status; Z01.810 Encounter for preprocedural cardiovascular examination; Z01.812 Encounter for preprocedural laboratory examination; Z01.818 Encounter for other preprocedural examination; Z20.822 Contact with and (suspected) exposure to COVID-19; Z79.82 Long term (current) use of aspirin
CPT/HCPCS: 36415; 50590; 71046; 74018; 80053; 83970; 84550; 85025; 87086; 93005; C1758; J1580; J2001; J2250; J2405; J2543; J2704; J3010; Q9967; U0002

== ENCOUNTER → 2021-10-13 | Outpatient (CLI) | payer MEDICARE, BC ==
[~2021-10-13] MED LIST changes: -BELLADONNA/OPIUM 30 MG SUPP RC ONE; -EPHEDRINE SULFATE INJ 50 MG/ML VIAL ONE; -FENTANYL CITRATE/PF 100MCG/2 ML INJ ONE; -GENTAMICIN 80MG/NS 100 ML 200 ML IV ONE; -IOPAMIDOL 300MG/ML 50ML INFUS..BTL IV ONE; -LIDOCAINE HCL 2% LOCAL INJ 5 ML SDV VIAL INJ ONE; -MIDAZOLAM HCL 2 MG/2 ML VIAL ONE; -ONDANSETRON HCL INJ 2MG/ML 2ML 2 MG/ML VIAL ONE; -PIPERACILLIN/TAZOBACTAM 3.375 GM VIAL ONE; -POVIDONE IODINE 0.05% 0.05 % ML PO ONE; -PROPOFOL IV EMULSION 10 MG/ML 20 ML VIAL ONE; -SEVOFLURANE INHAL SOLN 250 ML PEN BTL ONE; -SODIUM CHLORIDE 0.9% 50ML 50 ML ONE
== END ==
LOC: RAD 14:58
PROVIDERS: ATTEND Urology
DX: N20.0 Calculus of kidney (principal)
CPT/HCPCS: 74018

== ENCOUNTER → 2022-02-25 | Day surgery (SDC) | payer MEDICARE, BC ==
[2022-02-23 09:52] LABS: BASOPHILS % 0.5 % (0.0-1.0); HEMATOCRIT 31.1 % (34.2-44.1); HEMOGLOBIN 10.5 g/dL (12.0-16.0); LYMPHOCYTES % 25.9 % (18.0-39.1); MEAN CORPUSCULAR HEMOGLOBIN 32.1 pg (28-32); MEAN CORPUSCULAR HGB CONC 33.8 g/dL (31-35); MEAN CORPUSCULAR VOLUME 95.1 fL (81-99); MONOCYTES # (AUTO) 0.6 (0.2-0.8); MONOCYTES % 14.5 % (4.4-11.3); NEUTROPHILS # (AUTO) 2.2 (2.1-6.9); NEUTROPHILS % 57.8 % (38.7-80.0); PLATELET COUNT 213 x10e3/uL (140-360); RED BLOOD COUNT 3.27 x10e6/uL (3.6-5.1); RED CELL DISTRIBUTION WIDTH 11.8 % (11.7-14.4)
[2022-02-23 10:24] LABS: CALCIUM 9.2 mg/dL (8.4-10.2); CREATININE, SERUM 0.95 mg/dL (0.57-1.11)
[~2022-02-25] MED LIST changes: +B&O 60MG R/S 60 MG SUPP PR ONE; +DEXAMETHASONE SOD PHOS INJ 4 MG/ML SDV ONE; +EPHEDRINE SULFATE INJ 50 MG/ML VIAL ONE; +FENTANYL CITRATE/PF 100MCG/2 ML INJ ONE; +GENTAMICIN 80MG/NS 100 ML 200 ML IV ONE; +IOPAMIDOL 610MG/1ML 300 MG/ML VIAL IV ONE; +LEVOFLOXACIN 500MG/D5W 100ML 100 ML IV ONE; +LIDOCAINE HCL 2% LOCAL INJ 5 ML SDV VIAL INJ ONE; +OMEGA 3 1,0001 EACH PO; +ONDANSETRON HCL INJ 2MG/ML 2ML 2 MG/ML VIAL ONE; +POVIDONE IODINE 0.05% 0.05 % ML PO ONE; +PROPOFOL IV EMULSION 10 MG/ML 20 ML VIAL ONE; +SEVOFLURANE INHAL SOLN 250 ML PEN BTL ONE; +SODIUM CHLORIDE 0.9% 1000ML 1,000 ML ONE; +[UNRECOGNIZED DRUG - OTHER]
[2022-02-25 11:55] VITALS: BP 160/68
== END | disposition home or self-care (01) ==
LOC: OR 08:37
PROVIDERS: ATTEND Urology
DX: N20.0 Calculus of kidney (principal); N39.0 Urinary tract infection, site not specified; N36.41 Hypermobility of urethra; N81.10 Cystocele, unspecified; N81.6 Rectocele; N95.2 Postmenopausal atrophic vaginitis; M06.9 Rheumatoid arthritis, unspecified; M19.90 Unspecified osteoarthritis, unspecified site; J30.2 Other seasonal allergic rhinitis; K21.9 Gastro-esophageal reflux disease without esophagitis; Z01.810 Encounter for preprocedural cardiovascular examination; Z01.812 Encounter for preprocedural laboratory examination; Z01.818 Encounter for other preprocedural examination; Z20.822 Contact with and (suspected) exposure to COVID-19; Z91.040 Latex allergy status; Z79.82 Long term (current) use of aspirin; Z79.899 Other long term (current) drug therapy; Z85.3 Personal history of malignant neoplasm of breast
CPT/HCPCS: 0223U; 36415; 50590; 71046; 74018; 80048; 83970; 84550; 85025; 87086; 93005; C1758; J1100; J1580; J1956; J2001; J2405; J3010; J7030

== ENCOUNTER → 2022-08-26 | Outpatient (CLI) | payer MEDICARE, BC ==
[~2022-08-26] MED LIST changes: -B&O 60MG R/S 60 MG SUPP PR ONE; -DEXAMETHASONE SOD PHOS INJ 4 MG/ML SDV ONE; -EPHEDRINE SULFATE INJ 50 MG/ML VIAL ONE; -FENTANYL CITRATE/PF 100MCG/2 ML INJ ONE; -GENTAMICIN 80MG/NS 100 ML 200 ML IV ONE; -IOPAMIDOL 610MG/1ML 300 MG/ML VIAL IV ONE; -LEVOFLOXACIN 500MG/D5W 100ML 100 ML IV ONE; -LIDOCAINE HCL 2% LOCAL INJ 5 ML SDV VIAL INJ ONE; -ONDANSETRON HCL INJ 2MG/ML 2ML 2 MG/ML VIAL ONE; -POVIDONE IODINE 0.05% 0.05 % ML PO ONE; -PROPOFOL IV EMULSION 10 MG/ML 20 ML VIAL ONE; -SEVOFLURANE INHAL SOLN 250 ML PEN BTL ONE; -SODIUM CHLORIDE 0.9% 1000ML 1,000 ML ONE
== END ==
LOC: RAD 11:01
PROVIDERS: ATTEND Urology
DX: N02.0 Recurrent and persistent hematuria with minor glomerular abnormality (principal)
CPT/HCPCS: 74018

== ENCOUNTER → 2023-08-17 | Outpatient (REF) | payer MEDICARE, BC | LOC: RAD 10:25 | PROVIDERS: ATTEND Urology | DX: N02.0 Recurrent and persistent hematuria with minor glomerular abnormality (principal) | CPT/HCPCS: 74018 ==

== ENCOUNTER → 2023-11-07 | Day surgery (SDC) | payer MEDICARE, BC ==
[2023-11-03 13:34] LABS: BASOPHILS % 0.4 % (0.0-1.0); EOSINOPHILS % 0.9 % (0.0-6.0); HEMATOCRIT 30.1 % (34.2-44.1); HEMOGLOBIN 10.7 g/dL (12.0-16.0); LYMPHOCYTES # (AUTO) 1.4 (1.0-3.2); LYMPHOCYTES % 30.3 % (18.0-39.1); MEAN CORPUSCULAR HEMOGLOBIN 32.9 pg (28-32); MEAN CORPUSCULAR HGB CONC 35.5 g/dL (31-35); MEAN CORPUSCULAR VOLUME 92.6 fL (81-99); MONOCYTES # (AUTO) 0.4 (0.2-0.8); MONOCYTES % 8.7 % (4.4-11.3); NEUTROPHILS # (AUTO) 2.7 (2.1-6.9); NEUTROPHILS % 59.5 % (38.7-80.0); PLATELET COUNT 219 x10e3/uL (140-360); RED BLOOD COUNT 3.25 x10e6/uL (3.6-5.1); RED CELL DISTRIBUTION WIDTH 11.9 % (11.7-14.4); WHITE BLOOD COUNT 4.46 x10e3/uL (4.8-10.8)
[2023-11-03 13:55] LABS: ANION GAP 14.8 mmol/L (8-16); CALCIUM 10.1 mg/dL (8.4-10.2); CREATININE, SERUM 1.1 mg/dL (0.57-1.11); POTASSIUM 3.8 mmol/L (3.5-5.1); URIC ACID 5.5 mg/dL (2.6-8.0)
[~2023-11-07] MED LIST changes: +ACETAMINOPHEN 1000 MG/100 ML IV ONE; +CRANBERRY 12,61 EACH PO; +DEXAMETHASONE SOD PHOS INJ 4 MG/ML SDV ONE; +FAMOTIDINE20 MG PO; +FLOMAX0.4 MG PO; +IOPAMIDOL 610MG/1ML 300 MG/ML VIAL IV ONE; +LIDOCAINE HCL 2% LOCAL INJ 5 ML SDV VIAL INJ ONE; +NITROFURANTOIN100 MG PO; +OMEPRAZOLE40 MG PO; +ONDANSETRON HCL INJ 2MG/ML 2ML 2 MG/ML VIAL ONE; +PROPOFOL IV EMULSION 10 MG/ML 20 ML VIAL ONE; +SEVOFLURANE INHAL SOLN 250 ML PEN BTL ONE; +VESICARE5 MG PO
[2023-11-07] MEDS: LACTATED RINGER'S 1,000 ML ONE (06:10)
[2023-11-07] MEDS: CEFTRIAXONE 1 GM VIAL ONE (06:11)
[2023-11-07] MEDS: GENTAMICIN 80MG/NS 100 ML 200 ML IV ONE (06:11)
[2023-11-07] MEDS: PHENAZOPYRIDINE HCL 100 MG TAB ONE (08:28)
[2023-11-07 08:50] VITALS: BP 146/78; PULSE 76; RESP 15; O2SAT 98
== END | disposition home or self-care (01) ==
LOC: OR 05:16
PROVIDERS: ATTEND Urology
DX: N20.0 Calculus of kidney (principal); Z46.6 Encounter for fitting and adjustment of urinary device; N28.89 Other specified disorders of kidney and ureter; N39.0 Urinary tract infection, site not specified; N81.89 Other female genital prolapse; N39.46 Mixed incontinence; R35.1 Nocturia; N36.41 Hypermobility of urethra; N81.10 Cystocele, unspecified; N81.6 Rectocele; N95.2 Postmenopausal atrophic vaginitis; K21.9 Gastro-esophageal reflux disease without esophagitis; Z91.040 Latex allergy status; M85.80 Other specified disorders of bone density and structure, unspecified site; Z01.812 Encounter for preprocedural laboratory examination; Z01.818 Encounter for other preprocedural examination; Z79.82 Long term (current) use of aspirin; Z85.3 Personal history of malignant neoplasm of breast; Z92.3 Personal history of irradiation
CPT/HCPCS: 36415; 52352; 74018; 74420; 80048; 84550; 85025; 87086; C1769; J0131; J0696; J1100; J1580; J2001; J2405; J2704; J7121; Q9967

== ENCOUNTER → 2024-02-13 | Outpatient (REF) | payer MEDICARE, BC ==
[~2024-02-13] MED LIST changes: -ACETAMINOPHEN 1000 MG/100 ML IV ONE; -DEXAMETHASONE SOD PHOS INJ 4 MG/ML SDV ONE; -IOPAMIDOL 610MG/1ML 300 MG/ML VIAL IV ONE; -LIDOCAINE HCL 2% LOCAL INJ 5 ML SDV VIAL INJ ONE; -ONDANSETRON HCL INJ 2MG/ML 2ML 2 MG/ML VIAL ONE; -PROPOFOL IV EMULSION 10 MG/ML 20 ML VIAL ONE; -SEVOFLURANE INHAL SOLN 250 ML PEN BTL ONE
== END ==
LOC: RAD 09:52
PROVIDERS: ATTEND Urology
DX: N02.0 Recurrent and persistent hematuria with minor glomerular abnormality (principal)
CPT/HCPCS: 74018

== ENCOUNTER → 2024-09-27 | Outpatient (REF) | payer MEDICARE, BC | LOC: CT 09:54 | PROVIDERS: ATTEND Urology | DX: N20.0 Calculus of kidney (principal) | CPT/HCPCS: 74176 ==

== ENCOUNTER → 2025-03-11 | Outpatient (REF) | payer MEDICARE, BC | LOC: RAD 10:19 | PROVIDERS: ATTEND Urology | DX: N20.0 Calculus of kidney (principal) | CPT/HCPCS: 74018 ==